=== PATIENT | female | born 1990 | race Caucasian/White ===

== ENCOUNTER 2024-02-24 14:25 | Outpatient (REF) | payer MEDICAID, SELFPAY ==
[2024-02-26 17:28] LABS: HPV mRNA E6/E7 Not Detected (Not Detected)
== END 2024-02-24 14:26 | disposition home or self-care (01) ==
LOC: HO.CHCLNP 14:25
PROVIDERS: Visit Provider Family Medicine
DX: Z01.419 Encounter for gynecological examination (general) (routine) without abnormal findings (principal)
CPT/HCPCS: 36415; 87624; 88175

== ENCOUNTER 2024-05-21 10:55 | Outpatient (REF) | payer MEDICAID, SELFPAY ==
[2024-05-21 14:18] LABS: MANUAL DIFF FLAG NO
[2024-05-21 14:28] LABS: Basophils Percent Auto 0.5 % (0-2); Eosinophils Absolute Auto 0.2 X10*3/uL (0.0-0.4); Eosinophils Percent Auto 2.7 % (0-4); Hematocrit 42.8 % (37.0-47.0); Hemoglobin 14.5 g/dl (12.0-16.0); Imm Gran Abs Auto 0.14 X10*3/uL (0.00-0.03); Imm Gran Pct Auto 1.7 % (0.0-0.4); Lymphocytes Absolute Auto 2.8 X10*3/uL (1.2-4.9); Mean Corpuscular HGB Conc 33.9 g/dl (31.0-35.0); Mean Corpuscular Hemoglobin 30.3 pg (27.0-33.0); Mean Corpuscular Volume 89.5 fL (80.0-98.0); Mean Platelet Volume 12.7 fL (9.4-12.3); Monocytes Absolute Auto 0.5 X10*3/uL (0.1-1.2); Monocytes Percent Auto 6.6 % (2-11); Neutrophils Absolute Auto 4.5 x10*3/uL (2.0-8.3); Neutrophils Percent Auto 54.5 % (45-73); Platelet Count 248 X10*3/uL (160-400); Red Blood Count 4.78 X10*6/uL (4.20-5.50); Red Cell Distribution Width 13.5 % (11.0-16.0); White Blood Count 8.2 X10*3/uL (4.8-10.8)
[2024-05-21 14:34] LABS: Estimated Average Glucose 105 mg/dL; Hemoglobin A1C 122.4982 umol/L; Hemoglobin A1c % 5.3 % (<6.0); Total Hemoglobin (HGBA1C) 3604.3839 umol/L
[2024-05-21 14:38] LABS: Albumin Level 4.1 g/dL (3.5-5.0); Anion Gap 16 (12-20); Aspartate Amino Transferase 23 U/L (5-31); Bilirubin Total 0.3 mg/dL (0.0-1.0); Blood Urea Nitrogen 13 mg/dL (9-16); Calcium 9.4 mg/dL (8.4-10.2); Carbon Dioxide 23 mmol/L (22-29); Chloride 106 mmol/L (96-108); Cholesterol 188 mg/dL (<200); Estimated Glomerular Filt Rate > 60; Glucose Random 107 mg/dL (60-115); HDL Cholesterol 67 mg/dL (>40); LDL Cholesterol Calculated 96 mg/dL (<100); Potassium 3.8 mmol/L (3.3-5.1); Sodium 141 mmol/L (135-145); Total Protein 7.4 g/dL (6.5-8.0); Triglycerides 126 mg/dL (<150)
[2024-05-21 15:01] LABS: Alanine Aminotransferase 32 U/L (0-31); Alkaline Phosphatase 75 U/L (39-117)
[2024-05-21 15:04] LABS: TSH reflex Free T4 1.51 uIU/mL (0.32-4.0)
[2024-05-22 08:55] LABS: HIV AB/AG Nonreactive (Nonreactive); HIV Num 1 0.06 S/CO (0.00-0.99); ~Hepatitis C Antibody Nonreactive (Nonreactive)
[2024-05-22 08:56] LABS: HBS Num1 > 1000.00 mIU/mL (0-7.99); HBc Num1 0.13 S/CO (0.00-0.79); HBsAGNum1 0.44 S/CO (0.00-0.99); Hepatitis B Core Antibody Nonreactive (Nonreactive); Hepatitis B Surface Antigen Negative (Negative); ~Hepatitis B Surface Antibody REACTIVE (Nonreactive)
[2024-05-25 02:53] LABS: Rubella IgG Antibody 4.98 Index; Rubeola IgG (Measles) >300.00 AU/mL
== END 2024-05-21 10:56 | disposition home or self-care (01) ==
LOC: HO.CHCLDS 10:55
PROVIDERS: Visit Provider Internal Medicine
DX: E66.811 Obesity, class 1 (principal); Z01.84 Encounter for antibody response examination
CPT/HCPCS: 36415; 80053; 80061; 83036; 84443; 85025; 86704; 86706; 86735; 86762; 86765; 86787; 86803; 87340; 87389

== ENCOUNTER 2025-05-16 13:47 | Outpatient (REF) | payer MEDICAID, SELFPAY ==
--- NOTE | ~2025-05-16 | XR_ITS ---
EXAMINATION: XR LUMBOSACRAL SPINE CLINICAL INFORMATION: Acute bilateral low back pain without sciatica; COMPARISON: None available. TECHNIQUE: Three views of the lumbosacral spine. FINDINGS: There are 5 nonrib-bearing lumbar segments. There is 11 degrees levoscoliosis. There is subtle wedging of the superior endplate of L2. XR/XR lumbar spine 2-3V IMPRESSION: Age-indeterminate subtle superior endplate compression fracture of L2. Mild levoscoliosis Electronically signed by: Sawyer Pichardo MD 05/16/2025 02:43 PM [place]
--- OUTSIDE RECORDS SUMMARY | 2025-05-16 13:00 | XMS_ITS | Encounter Summary ---
Author Organization [employer] Address [address] [facility] 7 [place] [address] Care Team Providers Care Stop Attacher Name Role Phone Marck Sandoval MD Primary Care Prov ider Reason for Visit * Reason Comments sick onsite Back pain Encounter Details Date Type Department Care Team (Late st Contact Info) Description 05/16/2025 1:00 PM EST Office Visit [facility] [address] [place] [address] Dali Sweeney NP [address] [place] [address] Acute bilateral low back pain without sciatica (Primary Dx) Social History Tobacco Use Types Packs/Day Years Used Date Smoking Tobacco: Former Cigarettes 0.3 14.9 S tarted: 2010 Smokeless Tobacco: Current Comments:2015 Alcohol Use Standard Drinks/Week Comments Never 0 (1 standard drink = 0.6 oz pur e alcohol) Alcohol Answer Date Recorded Frequency of Alcohol Consumption Not on file 10/23/2023 Average Number of Drinks Not on file 024 Frequency of Binge Drinking Not on file 10/07 Score 0 10/23/2023 Depression Answer Date Recorded Patient Health Questionnaire-9 Score 15 02/24/2024 Patient Health Questionnaire-9 Score 15 02/24/2024 Last PHQ-9: Questionnaire Data Not on file 0 02/24/2024 Housing Stability Answer Date Recorded What is your housing situation today? I am not s ure 10/23/[address] you li ve. Do you have problems with any of the following? None of the above 10/23/2023 Food Insecurity Answer Date Recorded Within the past 12 months, y ou worried that your food would run out before you got money to buy more: Never True 10/23/2023 Within the past 12 months,th e food you bought just didn't last and you didn't have enough money to get more: Never True Transportation Answer Date Recorded In the past 12 months, has l ack of transportation kept you from medical appts, meetings, work or from getting things needed for daily living? Yes, it has kept me from medical appointments or getting medications. 10/23/2023 Utilities Answer Date Recorded In the past 12 months, has t he electric, gas, oil or water company threatened to shut off services in your home? No 10/23/2023 Depression Answer Date Recorded Patient Health Questionnaire-2 Score 2 02/24/2024 Comments No Sex and Gender Information Value Date Recorded Sex Assigned at Female 04/08/2022 10:21 AM EDT Legal Sex Female 10:21 AM EDT Gender Identity Female 09/09/2023 3:36 PM EDT Sexual Orientation Don't know 09/09/2023 3: 36 PM EDT documented as of this encounter Last Filed Vital Signs Vital Sign Reading Time Taken Comments Blood Pressure 130/86 05/16/2025 1:12 PM EST Pulse 97 05/16/2025 1:12 PM EST Temperature 36.7 C (98 F) 05/16/2025 1:12 PM EST Respiratory Rate 24 05/16/2025 1:12 PM EST Oxygen Saturation 98% 05/16/2025 1:12 PM EST Inhaled Oxygen Concentration - - Weight 101 kg (222 lb 12.8 oz) 05/16/2025 1:12 P M EST Height 165.1 cm (5' 5 ) 05/16/2025 1:12 PM EST Body Mass Index 37.08 05/16/2025 1:12 PM EST documented in this encounter Progress Notes * Dali Sweeney NP - 05/16/2025 1:00 PM EST SUBJECTIVE: Erum Berger is a 35 y.o. female who presents with complaints of: back injury Erum Berger, 35-year-old female - Low back pain onset 2024 after performing hip thrust exercise with 150 lbs, associatedwith over-curvature of the spine - Initial severe pain, improved since onset but persists - Difficulty walking initially but gait improving with time - Regular muscle spasms in lumbar region - Pain worsened after attending class and wearing a back brace on , described as like someone lit my back on fire - Has ongoing need to force urination, sensation of incomplete bladder emptying - No numbness or tingling in legs - Occasional genital numbness and tingling, present prior to injury - Denies loss of bowel or bladder control - Alternating use of heat, ice, ibuprofen, naproxen, and rest with minimal relief, some improvementnoted - Difficulty sitting or standing for prolonged periods, increased irritability due to discomfort - Avoiding weightlifting and running due to back pain Review of Systems Constitutional: Negative. Negative for chills and fever. Respiratory: Negative for chest tightness and shortness of breath. Cardiovascular: Negative for chest pain. Gastrointestinal: Negative for abdominal pain, constipation, diarrhea and nausea. Genitourinary: Negative for dysuria. Musculoskeletal: Positive for back pain and gait problem. Negative for arthralgias, myalgias and neck pain. Skin: Negative. Negative for rash and wound. Neurological: Negative for weakness, light-headedness and headaches. Psychiatric/Behavioral: Negative for behavioral problems, confusion, decreased concentration and suicidal ideas. Current Medications[1] Allergies[2] OBJECTIVE: Visit Vitals BP 130/86 (BP Location: Left arm, Patient Position: Sitting, BP Cuff Size: Large adult) Pulse 97 Temp 98 ??F (36.7 ??C) (Oral) Resp 24 Ht 5' 5 (1.651 m) Wt 222 lb 12.8 oz (101 kg) SpO2 98% BMI 37.08 kg/m?? OB Status Having periods Smoking Status Former BSA 2.15 m?? Physical Exam Vitals reviewed. Constitutional: General: She is not in acute distress. Appearance: Normal appearance. She is not ill-appearing. HENT: Head: Normocephalic and atraumatic. Right Ear: External ear normal. Left Ear: External ear normal. Nose: Nose normal. Eyes: General: No scleral icterus. Extraocular Movements: Extraocular movements intact. Pulmonary: Effort: Pulmonary effort is normal. No respiratory distress. Musculoskeletal: General: No swelling or tenderness. Cervical back: Normal range of motion. Lumbar back: Spasms present. No swelling or edema. Decreased range of motion. Negative right straight leg raise test and negative left straight leg raise test. Neurological: General: No focal deficit present. Mental Status: She is alert and oriented to person, place, and time. Gait: Gait normal. Psychiatric: Mood and Affect: Mood normal. Behavior: Behavior normal. - MUSCULOSKELETAL: Pain not elicited during straight leg raise test, limited range of motion in lumbar flexion, unable able to perform forward flexion, rotation with mild discomfort. ASSESSMENT/PLAN: Acute bilateral low back pain without sciatica: - Acute bilateral low back pain following weightlifting injury. No evidence of sciatica. Improvement noted, but persistent muscle spasms and pain with movement. - Prescribed diclofenac as an alternative NSAID, with dosing instructions not to exceed 150 mg per day. - Prescribed Flexeril (cyclobenzaprine) for muscle spasms, to be taken three times daily as needed. - Recommended continuation of supportive therapy including heat, ice, stretching, and rest. Advisedto avoid weightlifting and running until further notice. - Provided lidocaine patches for symptomatic relief - Provided school note for aabscence and accommodations - Advised to seek emergency care if bowel or bladder symptoms worsen, or if constant numbness and tingling develop. - Ordered lumbar X-ray to r/o fracture - Risks and side effects: Discussed increased risk of stomach ulcer and gastrointestinal bleeding with NSAID use. - Scheduled follow-up in two weeks. Bladder dysfunction: - Mild bladder dysfunction with difficulty initiating urination and sensation of incomplete emptying. No current loss of control over urination or defecation. No evidence of cauda equina syndrome at present. - Strict ED precuations provided. Assessment & Plan Acute bilateral low back pain without sciatica Orders: XR Lumbar Spine 2-3 Views; Future cyclobenzaprine (Flexeril) 10 MG tablet; Take 1 tablet (10 mg) by mouth 3 times daily. diclofenac (Cataflam) 50 MG tablet; Take 2 tabs today only, then 1 tab 2-3 times per day as needed.Do not take more than 3 tabs per day lidocaine (Lidoderm) 5 % patch; Apply 1 patch topically Once per day. Remove & discard patch within 12 hours or as directed by . Future Appointments Date Time Provider Department Center 06/01/2025 8:30 AM Marck Calderon MD [facility] This note was drafted using Ambient (AI) technology. The patient/patient's guardian has been informed and has consented to the use of this technology: Yes [1] Current Outpatient Medications: cyclobenzaprine (Flexeril) 10 MG tablet, Take 1 tablet (10 mg) by mouth 3 times daily., Disp: 42 tablet, Rfl: 0 diclofenac (Cataflam) 50 MG tablet, Take 2 tabs today only, then 1 tab 2-3 times per day as needed.Do not take more than 3 tabs per day, Disp: 44 tablet, Rfl: 0 escitalopram (Lexapro) 5 MG tablet, Take 1 tablet (5 mg) by mouth Once per day., Disp: 30 tablet, Rfl: 2 hydrocortisone (Anusol-HC) 2.5 % rectal cream, Insert into the rectum 2 times daily., Disp: 28 g, Rfl: 3 hydrOXYzine pamoate (Vistaril) 50 MG capsule, Take 1 capsule (50 mg) by mouth every 6 (six) hours if needed for anxiety (moderate to severe)., Disp: 90 capsule, Rfl: 1 lidocaine (Lidoderm) 5 % patch, Apply 1 patch topically Once per day. Remove & discard patch within 12 hours or as directed by MD., Disp: 30 patch, Rfl: 1 medroxyPROGESTERone (Depo-Provera) 150 MG/ML injection, Inject 1 mL (150 mg) into the muscle every 3 (three) months., Disp: 1 mL, Rfl: 3 melatonin 10 MG tablet, Take 1 tablet (10 mg) by mouth if needed at bedtime for sleep., Disp: 30 tablet, Rfl: 1 mirtazapine (Remeron) 15 MG tablet, Take 1 tablet (15 mg) by mouth at bedtime., Disp: 30 tablet, Rfl: 0 risperiDONE (RisperDAL) 0.25 MG tablet, Take 1 tablet (0.25 mg) by mouth 2 times daily., Disp: 60 tablet, Rfl: 0 Current Facility-Administered Medications: medroxyPROGESTERone (Depo-Provera) injection 150 mg, 150 mg, Intramuscular, q3 months, Meeta Weir MD [2] Allergies Allergen Reactions Heparin documented in this encounter Plan of Treatment Upcoming Encounters Date Type Department Care Team (Late st Contact Info) Description 06/01/2025 8:30 AM EST Telemedicine [facility] [address] [place] [address] Marck Sandoval MD [address] [place] [address] documented as of this encounter Procedures Procedure Name Priority Date/Time Associated Diagnosis Comments XR LUMBAR SPINE 2-3 VIEWS Routine 05/16/2025 2:30 PM EST Acute bilateral low back pain without sciatica documented in this encounter Results * XR Lumbar Spine 2-3 Views (05/16/2025 2:30 PM EST) Anatomical Region Laterality Modality Spine, L-spine Radiographic Batool ging 05/16/2025 2:30 PM EST Narrative 05/16/2025 2:46 PM EST [facility] [address] [place] [address] XRay Report Signed Patient: Erum Berger MR#: [id number] 2 : 1990 Acct:[id number] Age/Sex: 35 / F ADM Date: 05/16/25 Loc: HO.HHCX Attending Dr: Dali Sweeney Ordering Physician: Dali Sweeney Date of Service: 05/16/25 Procedure(s): XR lumbar spine 2-3V Accession Number(s): [id number] cc: Dali Sweeney; Marck Sandoval MD Reason for Exam: pain EXAMINATION: XR LUMBOSACRAL SPINE CLINICAL INFORMATION: Acute bilateral low back pain without sciatica; COMPARISON: None available. TECHNIQUE: Three views of the lumbosacral spine. FINDINGS: There are 5 nonrib-bearing lumbar segments. There is 11 degrees levoscoliosis. There is subtle wedging of the superior endplate of L2. XR/XR lumbar spine 2-3V IMPRESSION: Age-indeterminate subtle superior endplate compression fracture of L2. Mild levoscoliosis Electronically signed by: Sawyer Pichardo MD 05/16/2025 02:43 PM EST RP Dictated By: Sawyer Pichardo MD Signed By: <Electronically signed by Sawyer Pichardo MD in OV> 05/16/25 1443 DD/ 1430 TD/TT: 05/16/25 1438 Truck Driver: Procedure Note Donotuseinterpreter, Image - 05/16/[address] [address] XRay Report Signed Patient: Erum BergerMR#: [id number] 2 : 1990Acct:[id number] Age/Sex: 35 / FADM Date: 05/16/25 Loc: HO.HHCX Attending Dr: Dali Sweeney Ordering Physician: Dali Sweeney Date of Service: 05/16/25 Procedure(s): XR lumbar spine 2-3V Accession Number(s): [id number] cc: Dali Sweeney; Marck Sandoval MD Reason for Exam: pain EXAMINATION: XR LUMBOSACRAL SPINE CLINICAL INFORMATION: Acute bilateral low back pain without sciatica; COMPARISON: None available. TECHNIQUE: Three views of the lumbosacral spine. FINDINGS: There are 5 nonrib-bearing lumbar segments. There is 11 degrees levoscoliosis. There is subtle wedging of the superior endplate of L2. XR/XR lumbar spine 2-3V IMPRESSION: Age-indeterminate subtle superior endplate compression fracture of L2. Mild levoscoliosis Electronically signed by: Sawyer Pichardo MD 05/16/2025 02:43 PM EST RP Dictated By: Sawyer Pichardo MD Signed By: <Electronically signed by Sawyer Pichardo MD in OV> 05/16/25 1443 DD/ 1430 TD/TT: 05/16/25 1438 Truck Driver: Dali Sweeney ATTENDANCE OFFICER IMG XR PROCEDURES Final Result documented in this encounter Visit Diagnoses Diagnosis Acute bilateral low back pain without sciatica- Primary documented in this encounter Additional Health Concerns Assessment Noted Time PHQ-9 Depression Total Score: 15 024 12:11 PM EDT documented as of this encounter Care Teams Stop Attacher Relationship Specialty Start Date End Date Marck Sandoval MD [address] [place] [phone] PCP - General Internal Medicine 10/30/23 documented as of this encounter
--- OUTSIDE RECORDS SUMMARY | 2025-05-16 22:33 | XMS_ITS | Encounter Summary ---
Author Organization [employer] Address [address] [place] [address] Care Team Providers Care Employee Benefits Specialist Name Role Phone Marck Sandoval MD Primary Care Prov ider Encounter Details Date Type Department Care Team ([facility] st Contact Info) Description 05/21/2024 Orders Only [facility] [address] [place], [place] [phone] Marck Sandoval MD [address] [place] [address] Immunity status testing (Primary Dx) Social History Tobacco Use Types [...] the past 12 months, has t he [employer], gas, oil or water company threatened to [...] PM EDT documented as of this encounter Plan of Treatment Upcoming Encounters Date Type Department Care Team (Late st Contact Info) Description 06/01/2025 8:30 AM EST Telemedicine [facility] [address] [place] [address] Marck Sandoval MD [address] [place] [address] documented as of this encounter Procedures Procedure Name Priority Date/Time Associated Diagnosis Comments MEASLES, MUMPS, AND RUBELLA (MMR) AB (IGG) PANEL, IMMUNE STATUS Routine 05/21/2024 10:57 AM EST Immunity status testing HEPATITIS B SURFACE ANTIGEN, EIA Routine 05/21/2024 10:57 AM EST Immunity status testing HEPATITIS B CORE AB TOTAL Routine 05/21/2024 10:57 AM EST Immunity status testing HEPATITIS B SURFACE ANTIBODY, QUALITATIVE Routine 05/21/2024 10:57 AM EST Immunity status testing VARICELLA ZOSTER ANTIBODY, IGG Routine 05/21/2024 10:57 AM EST Immunity status testing documented in this encounter Results * Varicella Zoster Antibody, IgG (05/21/2024 10:57 AM EST) Varicella IgG Antibody 13.40 S/CO [facility] Comment:Signal to Cut-off S/ CO Interpretation --------- <1.00 Negative - Antibody not detected > or = 1.00 Positive - Antibody detected A positive result indicates that the patient has antibody to VZV but does not differentiate between an active or past infection. The clinical diagnosis must be interpreted in conjunction with the clinical signs and symptoms of the patient. This assay reliably measures immunity due to previous infection but may not be sensitive enough to detect antibodies induced by vaccination. Thus, a negative result in a vaccinated individual does not necessarily indicate susceptibility to VZV infection. A more sensitive test for vaccination-induced immunity is Varicella Zoster Virus Antibody Immunity Screen, ACIF.THIS TEST WAS PERFORMED AT:[facility] [place] [phone] ARROYO MD Blood Venous blood specimen / Unknown 05/21/2024 10:57 AM EST 05/21/2024 2:18 PM EST Marck Calderon MD LAB BLOOD ORDERABL ES Final Result [facility] [address] [place] [phone] * Measles, Mumps, and Rubella (MMR) Antibodies??(IgG) Panel, Immune Status (05/21/2024 10:57 AM EST) Pathologist [facility] Mumps Virus IgG Antibody 27.90 AU/mL [facility] Comment:AU/mL Interpretatio n------- <9.00 Not consistent with immunity9.00-10.99 Equivocal>10.99 Consistent with immunityThe presence of mumps IgG antibody suggests immunizationor past or current infection with mumps virus. Rubella IgG Antibody 4.98 Index [facility] Comment:Index Interpretation ----- <0.90 Not consistent with immunity 0.90-0.99 Equivocal > or = 1.00 Consistent with immunityThe presence of rubella IgG antibody suggestsimmunization or past or current infection withrubella virus.THIS TEST WAS PERFORMED AT:[facility] [place] [phone] ARROYO MD Rubeola IgG (Measles) >300.00 AU/mL [facility] Comment:AU/mL Interpretation ----- <13.50 Not consistent with stsqiwej15.50-16.49 Equivocal>16.49 Consistent with immunityThe presence of measles IgG suggests immunization orpast or current infection with measles virus.For additional information, please refer tohttp://education.Proberry/faq/OUW809(This link is being provided for informational/educational purposes only.) Blood Venous blood specimen / Unknown 05/21/2024 10:57 AM EST 05/21/2024 2:18 PM EST Marck Calderon MD LAB BLOOD ORDERABL ES Final Result Performing Organization Address [facility]/ZIP Co de Phone Number [facility] [address] [place] [phone] * Hepatitis B surface antigen, EIA (05/21/2024 10:57 AM EST) Hepatitis B Surface Ag Negative Negative [facility] Blood Venous blood specimen / Unknown 05/21/2024 10:57 AM EST 05/21/2024 2:18 PM EST Marck Calderon MD LAB BLOOD ORDERABL ES Final Result Performing Organization Address [facility]/ZIP Co de Phone Number [facility] [address] [place] [phone] * Hepatitis B Core Antibody, Total (05/21/2024 10:57 AM EST) Hepatitis B Core Antibody Nonreactive Nonreactive [facility] Blood Venous blood specimen / Unknown 05/21/2024 10:57 AM EST 05/21/2024 2:18 PM EST us Marck Calderon MD LAB BLOOD ORDERABL ES Final Result Performing Organization Address [facility]/ZIP Co de Phone Number [facility] [address] [place] [phone] * Hepatitis B Surface Antibody, Qualitative (05/21/2024 10:57 AM EST) ~Hepatitis B Surface Antibody REACTIVE Nonreactive [facility] Comment:REACTIVE: > 11.99 mI U/mL Blood Venous blood specimen / Unknown 05/21/2024 10:57 AM EST 05/21/2024 2:18 PM EST us Marck Calderon MD LAB BLOOD ORDERABL ES Final Result Performing Organization Address [facility] de Phone Number [facility] [address] [place] [phone] documented in this encounter Visit Diagnoses Diagnosis Immunity status testing- Primary Antibody response examination documented in this encounter Additional Health Concerns Assessment Noted Time PHQ-9 Depression Total Score: 15 02/23/ 024 12:11 PM EDT documented as of this encounter Care Teams Employee Benefits Specialist Relationship Specialty Start Date End Date Marck Sandoval MD [address] [place] [phone] PCP - General Internal Medicine 10/30/23 documented as of this encounter
--- OUTSIDE RECORDS SUMMARY | 2025-05-16 22:33 | XMS_ITS | Encounter Summary ---
Author Organization [employer] Address [address] [address] Care Team Providers Care Poultry Boner Name Role Phone Marck Sandoval MD Primary Care Prov ider Reason for Visit * Reason Onset Date Comments Nurse Triage 11/03/2024 Encounter Details Date Type Department Care Team ([facility] st Contact Info) Description 11/03/2024 Telephone [facility] [address] [place] [address] Marck Sandoval MD [address] [place] [address] Nurse Triage Social History Tobacco Use Types Packs/Day Years [...] the past 12 months, has t he [employer], gas, oil or water [employer] threatened to shut off services in your [...] PM EDT documented as of this encounter Miscellaneous Notes * Telephone Encounter - Nela Lea RN - 11/03/2024 10:23 AM EDT Triage call Pt is reporting rectal sx. Pt reports being on a restricted diet for weight training. Pt reports difficulty passing Bowel Movement. Last BM 11/02/24 evening denies constipation. Pt reportssome straining with BM. Pt reports a blister has formed possible hemorrhoid. Pt denies any bleeding but, pain is present. Pt is encouraged to increase liquids to 6-8 glasses daily and agrees. [facility]K apt in [facility] today at 340pm. Pt agrees with disposition and insurance is verified as active. Protocol Used: Rectal Symptoms (Adult) Protocol-Based Disposition: See in Office or Video Visit Today or Tomorrow Positive Triage Question: * Patient wants to be seen * All higher-acuity triage questions were negative Care Advice Discussed: * Reassurance and Education - Mild Rectal Pain or Irritation * Reasons To Call Back - Severe rectal pain - Rectal pain not improved after 3 days - Rectal bleeding is more than minor (such as more than just blood on toilet paper or few drops) - Rectal bleeding is minor but is ongoing (such as occurs over 2 times) - You become worse * Telephone Encounter - Rodo Vela - 11/03/2024 10:00 AM EDT Symptom: Rectal Symptoms - Not Bleeding Outcome: Schedule an appointment to be seen within 3 days Reason: Caller denied all higher acuity questions The caller accepted this outcome. documented in this encounter Plan of Treatment Upcoming Encounters Date Type Department Care Team (Late st Contact Info) Description 06/01/2025 8:30 AM EST Telemedicine [facility] [address] [place] [address] Marck Sandoval MD [address] [place] [address] documented as of this encounter Visit Diagnoses Not on filedocumented in this encounter Additional Health Concerns Assessment Noted Time PHQ-9 Depression Total Score: 15 024 12:11 PM EDT documented as of this encounter Care Teams Poultry Boner Relationship Specialty Start Date End Date Marck Sandoval MD [address] [place] [address] PCP - General Internal Medicine 10/30/23 documented as of this encounter
--- OUTSIDE RECORDS SUMMARY | 2025-05-16 22:33 | XMS_ITS ---
Author Name [facility] Organization Unknown Encounters Encounter Type Encounter Reason Primary Diagnosis Location Date Ambulatory Other deformitie s of toe(s) (acquired[place] [facility] [place] Other deformitie s of toe(s) (acquired), right foot [facility] 10/16/2021 Ambulatory [facility] [place] [facility] 10/02/2021 Ambulatory Post-[facility] [place] [facility] 08/21/2021 Ambulatory Post-op [place] [facility] 08/01/2021 Ambulatory Post-op [place] [facility] 07/17/2021 Ambulatory Encounter for follow-up examination after completed treatment for conditions other than malignant neoplasm [place] [employer] 07/03/2021 Ambulatory Encounter for follow-up examination after completed treatment for conditions other than malignant neoplasm [facility] 06/26/2021 Ambulatory Encounter for ot her preprocedural examination [place] [employer] 06/11/2021 Ambulatory [place] [facility] 05/29/2021 Ambulatory Bunion of right foot [facility] [employer] 04/18/2021 Care Team Organization Name Specialty Phone Email Start Date End [facility] 10/13/2024 04/23/2025 [place] [facility] 10/07/2023 11/11/2023 [facility] 12/19/2022 01/26/2024 [place] [employer] [facility] Primary Care 12/14/2021 [place] [facility] Primary Care 04/18/2021 10/17/19 [place] [employer] NO PCP Primary Care 04/18/2021 10/16/2021
--- OUTSIDE RECORDS SUMMARY | 2025-05-16 22:33 | XMS_ITS | Encounter Summary ---
Author Organization [employer] Address [address] [address] Care Team Providers Care Apprentice Pattern Maker Name Role Phone Marck Sandoval MD Primary Care Prov ider Reason for Visit * Reason Onset Date Comments Nurse Triage 05/16/2025 Encounter Details Date Type Department Care Team ([facility] st Contact Info) Description 05/16/2025 Telephone [facility] [address] [place] [address] Marck Sandoval MD [address] [place] [address] Nurse Triage Social History Tobacco Use Types [...] the past 12 months, has t he [employer] gas, oil or water [employer] threatened to shut off services in your [...] encounter Miscellaneous Notes * Telephone Encounter - Lianet Noriega RN - 05/16/2025 9:53 AM EST T/C returned to pt to triage. Pt reports on Friday05/10/25 she was working out in the gym. Put toomuch weight on the hip thrust machine and threw her back out. Pt reports pain currently 7 while resting, 8-9 while walking and moving. Pt reports taking Naproxen without relief. Also reports she tried heating pad, hot bath, and light stretching. Pt denies loss of bowel/bladder function, fever, num bness or weakness in groin or extremities, or any other Sx. Does report that sometimes she has to push to urinate. Pt is supposed to go to school this week so would like evaluated to make sure that she didn't herniate a disc and to get school excuse note. Informed nothing available in [facility]. Offered appt tomorrow in [facility] or [place] today. Pt agreeable to [place]. Booked for today with [employer]. Pt agrees with disposition. Protocol Used: Back Pain (Adult) Protocol-Based Disposition: See in Office or Video Visit within 3 Days Video visit offer not recorded Positive Triage Question: * Moderate back pain (e.g., interferes with normal activities) and present > 3 days * All higher-acuity triage questions were negative. Care Advice Discussed: * Reasons To Call Back - Fever occurs - Numbness or weakness occurs - Loss of control of your bladder or bowel * Telephone Encounter - Tiffany Goff - 05/16/2025 9:06 AM EST Symptom: Back Pain - Not From Injury Outcome: Schedule an appointment to be seen within 3 days Reason: Caller denied all higher acuity questions The caller accepted this outcome. Contact pt at [phone] documented in this encounter Plan of Treatment Upcoming Encounters Date Type Department Care Team (Late st Contact Info) Description 06/01/2025 8:30 AM EST Telemedicine [facility] MED & PEDS [address] [place], [place] [phone] Marck Sandoval MD [address] [place] [address] documented as of this encounter Visit Diagnoses Not on filedocumented in this encounter Additional Health Concerns Assessment Noted Time PHQ-9 Depression Total Score: 15 024 12:11 PM EDT documented as of this encounter Care Teams Apprentice Pattern Maker Relationship Specialty Start Date End Date Marck Sandoval MD [address] [place], [place] [phone] PCP - General Internal Medicine 10/30/23 documented as of this encounter
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
--- OUTSIDE RECORDS SUMMARY | 2025-05-16 22:33 | XMS_ITS | Encounter Summary ---
Author Organization [employer] Address [address] [facility] [address]t [place] [address] Care Team Providers Care Problem Manager Name Role Phone Marck Sandoval MD Primary Care Prov ider Encounter Details Date Type Department Care Team (Latest Contact Info) Description 05/16/2025 Travel Social History Tobacco Use Types Packs/Day Years [...] Upcoming Encounters Date Type Department Care Team ([facility] st Contact Info) Description 06/01/2025 8:30 AM EST Telemedicine [facility] & PEDS [address] [place] [address] Marck Sandoval MD [address] [place] [address] documented as of this encounter Visit Diagnoses Not on filedocumented in this encounter Additional Health Concerns Assessment Noted Time PHQ-9 Depression Total Score: 15 024 12:11 PM EDT documented as of this encounter Care Teams Problem Manager Relationship Specialty Start Date End Date Marck Sandoval MD [address] [place] [address] PCP - General Internal Medicine 10/30/23 documented as of this encounter
--- OUTSIDE RECORDS SUMMARY | 2025-05-16 22:33 | XMS_ITS | Encounter Summary ---
Author Organization [employer] Address [address] [place] [address] [address] [place] [address] Care Team Providers Care Water Filterer Name Role Phone Marck Sandoval MD Primary Care Prov ider Reason for Referral * Imaging (Routine) - Pending Review Specialty Diagnoses / Procedures Referred By Contac t Referred To Contact Radiology Diagnoses Acute bilateral low back pain without sciatica Procedures MR Lumbar Spine w/o Contrast Dali Sweeney NP [address] [place] [address] Phone: tel: fax: Referral ID Status Reason Start Date Expiration Date V isits Requested Visits Authorized [id number] Pending Review 05/16/2025 05/16/2026 1 1 Reason for Visit * Reason Onset Date Comments Results 05/16/2025 Encounter Details Date Type Department Care Team (Late st Contact Info) Description 05/16/2025 Results Follow-Up [facility] [address] [place] [address] Dali Sweeney NP [address] [place] [address] XR Lumbar Spine 2-3 Views Social History Tobacco Use Types Packs/Day Years Used Date Smoking Tobacco: Former Cigarettes 0.3 14.9 S tarted: 2010 Smokeless Tobacco: Current Comments:2014 Alcohol Use Standard Drinks/Week Comments Never [...] encounter Miscellaneous Notes * Telephone Encounter - Edel Lowery RN - 05/16/2025 4:51 PM EST Tc to pt to let them know covering provider Unsuccessful call to patient, LM for her to return the call. Please reach out to the patient again to inform Lumbar X-ray revealed compression fracture of L2. Unable to determine if its acute or has been longstanding. Ordered lumbar MRI for further evaluation. . Pt verbalized understanding and agrees with plan. * Telephone Encounter - Edel Lowery RN - 05/16/2025 4:51 PM EST ----- Message from Dali Sweeney sent at 05/16/2025 4:38 PM EST ----- Unsuccessful call to patient, LM for her to return the call. Please reach out to the patient again to inform Lumbar X-ray revealed compression fracture of L2. Unable to determine if its acute or has been longstanding. Ordered lumbar MRI for further evaluation. ----- Message ----- From: Silvio Coppola Results In Sent: 05/16/2025 2:47 PM EST To: Dali Sweeney NP * Telephone Encounter - Tiffany Goff - 05/16/2025 4:41 PM EST TC from patient returning call regarding X-ray results. documented in this encounter Plan of Treatment Upcoming Encounters Date Type Department Care Team (Late st Contact Info) Description 06/01/2025 8:30 AM EST Telemedicine [facility] [address] [place] [address] Marck Sandoval MD [address] [place] [address] Scheduled Orders Name Type Priority Associated Diagnoses Orde r Schedule MR Lumbar Spine w/o Contrast Imaging Routine Acute bilateral low back pain without sciatica Expected: 05/16/2025, Expires: 05/16/2026 documented as of this encounter Visit Diagnoses Diagnosis Acute bilateral low back pain without sciatica- Primary documented in this encounter Additional Health Concerns Assessment Noted Time PHQ-9 Depression Total Score: 15 02/23/2 024 12:11 PM EDT documented as of this encounter Care Teams Water Filterer Relationship Specialty Start Date End Date Marck Sandoval MD [address] [place] [id number] PCP - General Internal Medicine 10/30/23 documented as of this encounter
== END 2025-05-16 13:48 | disposition home or self-care (01) ==
LOC: HO.HHCX 13:47
PROVIDERS: PCP Internal Medicine; Visit Provider Nurse Practitioner
DX: M54.50 Low back pain, unspecified (principal)
CPT/HCPCS: 72100

== ENCOUNTER → 2025-05-16 13:58 | Outpatient (BNV) | payer MEDICAID, SELFPAY | PROVIDERS: PCP Internal Medicine; Visit Provider Radiology Diagnostic Radiology | DX: M41.126 Adolescent idiopathic scoliosis, lumbar region (principal) | CPT/HCPCS: 72100 ==